=== PATIENT | female | born 1990 | race Caucasian/White ===

== ENCOUNTER 2018-02-20 14:20 | Emergency (ER) | payer SELFPAY ==
[2018-02-20 14:20] VITALS: BMI 31.9
[2018-02-20] MEDS ORDERED: Sodium Chloride 0.9% 1,000 ML IV ONE (15:30)
[2018-02-20 15:44] LABS: HCG,QUALITATIVE URINE NEGATIVE (NEGATIVE)
[2018-02-20 15:50] LABS: SQUAMOUS EPITHIAL 4 /hpf (0-5); URINE BACTERIA RARE (<OCC); URINE BILIRUBIN NEGATIVE (NEGATIVE); URINE BLOOD 3+ (NEGATIVE); URINE CLARITY Clear (Clear); URINE COLOR Yellow (YELLOW); URINE GLUCOSE (UA) NORMAL (Normal); URINE LEUKOCYTE ESTERASE NEG Leu/uL (Negative); URINE PROTEIN 1+ mg/dL (NEGATIVE)
[2018-02-20] MEDS ORDERED: Sodium Chloride 0.9% 1,000 ML ONE (15:54)
[2018-02-20 15:55] LABS: BASO # 0.1 K/uL (0.0-0.2); BASO % 1.2 % (0.0-2.0); EOS # 0.1 K/uL (0.0-0.7); EOS % 1.5 % (0.0-4.0); HEMOGLOBIN 13.2 g/dL (11.0-16.0); LYMPH # 1.9 K/uL (1.0-4.3); LYMPH % 34.9 % (20.0-40.0); MEAN CELL VOLUME 83.8 fL (81.0-99.0); MEAN CORPUSCULAR HEMOGLOBIN 27.5 pg (27.0-31.0); MEAN CORPUSCULAR HGB CONC 32.8 g/dL (33.0-37.0); MEAN PLATELET VOLUME 6.9 fL (7.2-11.7); MONO # 0.5 K/uL (0.0-0.8); MONO % 8.7 % (0.0-10.0); NEUT # 2.9 K/uL (1.8-7.0); NEUT % 53.7 % (50.0-75.0); RBC 4.81 Mil/uL (3.80-5.20); RED CELL DISTRIBUTION WIDTH 13.8 % (11.5-14.5); WHITE BLOOD COUNT 5.4 K/uL (4.8-10.8)
--- NOTE | 2018-02-20 15:55 | C.PDOC ---
History Of Present Illness 27 y/o female, s/p and bilateral tubal ligation after a set of twins 9 years ago, presents to ED complaining of a worsening pelvic pain that is menstrual cramping, associated with lower back pain. Patient states her period is never regular and since December, she has been bleeding almost daily. States she gets days of heavy bleeding, then lightens up, gets brownish discharge for a couple of days, then bleed again. Patient has been trying to follow up with clinic in [place] but her appointments have been getting cancelled and rescheduled. Her current scheduled appointment is on 04/08/18, and she has not yet been seen for this problem. Patient now states that she is starting to have more pain, nausea, difficulty sleeping with discomfort, and during the daytime she is having dizziness and lightheadedness. Patient did not take any medications for pain. Time Seen by Provider: 02/20/18 15:23 Chief Complaint (Nursing): Female Genitourinary History Per: Patient History/Exam Limitations: no limitations Onset/Duration Of Symptoms: Days Current Symptoms Are (Timing): Still Present Past Medical History Reviewed: Historical Data, Nursing Documentation, Vital Signs Vital Signs: Last Vital Signs Temp 98.3 F 02/20/18 14:40 Pulse 72 02/20/18 14:40 Resp 18 02/20/18 14:40 BP 149/88 02/20/18 14:40 Pulse Ox 99 02/20/18 14:40 - Medical History PMH: Anxiety Family History: States: No Known Family Hx - Social History Hx Alcohol Use: Yes Hx Substance Use: No - Immunization History Hx Tetanus Toxoid Vaccination: No Hx Influenza Vaccination: Yes (2017) Hx Pneumococcal Vaccination: No Review Of Systems Constitutional: Negative for: Fever, Chills, Malaise Cardiovascular: Positive for: Light Headedness Gastrointestinal: Positive for: Nausea, Abdominal Pain Genitourinary: Positive for: Vaginal Bleeding, Pelvic Pain. Negative for: Dysuria Musculoskeletal: Positive for: Back Pain (lower) Neurological: Positive for: Dizziness Physical Exam - Physical Exam Appears: Non-toxic, No Acute Distress Skin: Warm, Dry Head: Atraumatic, Normacephalic Eye(s): bilateral: PERRL, Conjunctiva Pale Oral Mucosa: Moist Neck: Supple Chest: Symmetrical Cardiovascular: Rhythm Regular, No Murmur Respiratory: Normal Breath Sounds, No Rales, No Rhonchi, No Wheezing Gastrointestinal/Abdominal: Tenderness (local tenderness in left pelvis with some guarding), Other (Obese) Extremity: Bilateral: Atraumatic, Normal Color And Temperature, Normal ROM Neurological/Psych: Oriented x3, Normal Speech ED Course And Treatment - Laboratory Results Result Diagrams: 02/20/18 15:52 02/20/18 15:52 Lab Interpretation: No Acute Changes O2 Sat by Pulse Oximetry: 99 (RA) Pulse Ox Interpretation: Normal - CT Scan/US Abd/Pel/Transvag US Other Rad Studies (CT/US): Read By Radiologist, Radiology Report Reviewed CT/US Interpretation: FINDINGS: LMP: 12/26/2017. UTERUS: Measures 10.3 x 4.6 x 5.5 cm. Mildly enlarged slightly heterogeneous uterus. There is 0.9 x 0.7 x 0.7 centimeter echogenic lesion at the uterine fundus may represent calcified leiomyoma. There is cyst seen at the uterine cervix measures 1.2 x 1.2 x 1.4 centimeter likely represent nabothian cyst. ENDOMETRIUM: Measures 12 mm in diameter. Unremarkable. CERVIX: No cervical abnormality identified. RIGHT OVARY: Measures 3.3 x 2.6 x 3.3 cm. No solid mass. Normal flow. There is a cyst seen at the right ovary measures 1.7 x 2 x 1.8 centimeter. LEFT OVARY: Measures 4.8 x 3.6 x 4.5 cm. No solid mass. Normal flow. FREE FLUID: There is a cyst seen at the left ovary measures 1.9 x 3.9 x 3.6 contains thin septation and internal echoes. OTHER FINDINGS: None. IMPRESSION: Complex cystic lesion at the left adnexa measures 3.9 centimeter. 0.9 centimeter echogenic lesion at the uterine fundus likely represent calcified fibroid. Endometrial stripe thic kness is 12 millimeter. Reevaluation Time: 17:30 Reassessment Condition: Improved Medical Decision Making Medical Decision Making: Plan: --Labs --IV fluids --Pelvis US --Urinalysis Disposition Counseled Patient/Family Regarding: Studies Performed, Diagnosis, Need For Followup, Rx Given - Disposition Referrals: [facility] [Outside] [facility] [Outside] Disposition: HOME/ ROUTINE Disposition Time: 17:45 Condition: STABLE Prescriptions: Naproxen [Naprosyn] 1 tab PO BID PRN #25 tab PRN Reason: Pain Instructions: Ovarian Cyst (DC), Absent or Irregular Periods Forms: Gleam (Swiss) - Clinical Impression Clinical Impression: Ovarian cyst, Dysfunctional uterine bleeding - Scribe Statement The provider has reviewed the documentation as recorded by the Dianeibcarlie Ruggiero Provider Attestation: All medical record entries made by the Scribe were at my direction and personally dictated by me. I have reviewed the chart and agree that the record accurately reflects my personal performance of the history, physical exam, medical decision making, and the department course for this patient. I have also personally directed, reviewed, and agree with the discharge instructions and disposition.
[2018-02-20 16:07] LABS: ALB/GLOB RATIO 1.3 (1.0-2.1); ALBUMIN 4.3 g/dL (3.5-5.0); ALT/SGPT 227 U/L (9-52); AST/SGOT 171 U/L (14-36); BLOOD UREA NITROGEN 10 mg/dL (7-17); CALCIUM 9.4 mg/dl (8.6-10.4); GFR NON-AFRICAN AMERICAN > 60
--- NOTE | 2018-02-20 17:15 | US ---
Date of service: 02/20/2018 HISTORY: abnormal vaginal bleeding COMPARISON: None available. TECHNIQUE: Transabdominal and endovaginal ultrasound examination of the pelvis was obtained. FINDINGS: LMP: 12/26/2017 UTERUS: Measures 10.3 x 4.6 x 5.5 cm. Mildly enlarged slightly heterogeneous uterus. There is 0.9 x 0.7 x 0.7 centimeter echogenic lesion at the uterine fundus may represent calcified leiomyoma. There is cyst seen at the uterine cervix measures 1.2 x 1.2 x 1.4 centimeter likely represent nabothian cyst. ENDOMETRIUM: Measures 12 mm in diameter. Unremarkable. CERVIX: No cervical abnormality identified. RIGHT OVARY: Measures 3.3 x 2.6 x 3.3 cm. No solid mass. Normal flow. There is a cyst seen at the right ovary measures 1.7 x 2 x 1.8 centimeter. LEFT OVARY: Measures 4.8 x 3.6 x 4.5 cm. No solid mass. Normal flow. FREE FLUID: There is a cyst seen at the left ovary measures 1.9 x 3.9 x 3.6 contains thin septation and internal echoes. OTHER FINDINGS: None. IMPRESSION: Complex cystic lesion at the left adnexa measures 3.9 centimeter. 0.9 centimeter echogenic lesion at the uterine fundus likely represent calcified fibroid. Endometrial stripe thickness is 12 millimeter.
[2018-02-20 17:19] VITALS: O2SAT 99
[2018-02-20 18:02] VITALS: BP 121/75; PULSE 75; RESP 18; TEMP 98.2
== END 2018-02-20 18:01 | disposition home or self-care (01) ==
LOC: C.ER 14:20
DX: N93.8 Other specified abnormal uterine and vaginal bleeding (principal); N83.201 Unspecified ovarian cyst, right side
CPT/HCPCS: 76830; 76856; 80053; 81001; 84702; 84703; 85025; 96374; 99285; J1885; J7030